=== PATIENT | female | born 1955 | race Two or more races ===

== ENCOUNTER 2017-09-29 14:38 | Day surgery (SDC) | payer OTHER ==
[2017-09-29] MEDS ORDERED: MIDAZOLAM 1 MG/ML 2 ML INJ ×2 (17:08)
[2017-09-29] MEDS ORDERED: FENTAnyl 50 MCG/ML VIAL (17:08)
== END 2017-09-29 19:01 | disposition home or self-care (01) ==
LOC: GIL 14:38
DX: Z12.11 Encounter for screening for malignant neoplasm of colon (principal); D12.3 Benign neoplasm of transverse colon; K64.8 Other hemorrhoids
CPT/HCPCS: 45380; 88305